=== PATIENT | female | born 1955 | race Two or more races ===

== ENCOUNTER 2022-08-30 14:30 | Emergency (ER) | payer OTHER ==
[~2022-08-30] VITALS: Ht 165.1 cm; Wt 75.3 kg
[~2022-08-30 14:30] MED LIST: ACTIGALL300 MG; ADVAIR 2501 DISK W/1 IH; CLARINEX5 MG/TAB; CLARINEX5 MG/TAB PO; CORTISONE ACETAT; FOLIC ACID1 MG PO; IMURAN50 MG; IMURAN50 MG PO; Prednisone PO; SINGULAIR 10MG10 MG; SINGULAIR 10MG10 MG PO; URSODIOL 300 MG PO; [UNRECOGNIZED DRUG - OTHER]
== END 2022-08-30 17:36 | disposition home or self-care (01) ==
LOC: ER 14:30
DX: U07.1 COVID-19 (principal); Z88.2 Allergy status to sulfonamides

== ENCOUNTER 2023-03-07 13:47 | Emergency (ER) | payer OTHER ==
[~2023-03-07] VITALS: Ht 162.6 cm; Wt 72.1 kg
== END 2023-03-07 19:27 | disposition home or self-care (01) ==
LOC: ER 13:47
DX: R50.9 Fever, unspecified (principal); J06.9 Acute upper respiratory infection, unspecified; J00 Acute nasopharyngitis [common cold]; R53.81 Other malaise; Z88.2 Allergy status to sulfonamides

== ENCOUNTER 2025-04-18 08:32 | Emergency (ER) | payer OTHER ==
[~2025-04-18] VITALS: Ht 162.6 cm; Wt 68.0 kg
[2025-04-18 09:17] LABS: BASO % 0.5 % (0.1-1.2); EOS # 0.20 (0.04-0.54); EOS % 3.1 % (0.7-7.0); LYMPH # 2.30 (1.18-3.74); LYMPH % 35.3 % (19.3-53.1); MEAN PLATELET VOLUME 11.30 fl (9.4-12.4); MONO # 0.80 (0.24-0.82); NEUT # 3.18 (1.56-6.13); NEUT % 48.6 % (34.0-71.1); RED CELL DISTRIBUTION WIDTH 13.8 % (11.6-14.4)
[2025-04-18 09:22] LABS: MONO % 12.3 % (4.7-12.5)
[2025-04-18 10:52] LABS: COVID-19 AG NEGATIVE (NEGATIVE)
[2025-04-18] MEDS ORDERED: ZITHROMAX TRI-500 MG PO (14:23)
[2025-04-18] MEDS ORDERED: ACETAMINOPHEN500 M1 PO (14:23)
[2025-04-18] MEDS ORDERED: GILTUSS COUGH-118 M1 PO (14:23)
== END 2025-04-18 14:38 | disposition home or self-care (01) ==
LOC: ER 08:32
PROVIDERS: Preventive Medicine Public Health & General Preventive Medicine
DX: J06.9 Acute upper respiratory infection, unspecified (principal); Z20.822 Contact with and (suspected) exposure to COVID-19; Z88.2 Allergy status to sulfonamides